=== PATIENT | female | born 1980 | race Caucasian/White ===

== ENCOUNTER 2024-12-08 13:56 | Outpatient (CLI) | payer OTHER, SELFPAY ==
--- NOTE | ~2024-12-08 | DEXA_ITS ---
Bone Density Report Name: JENNIFER COFFMAN Age: 44 Sex: Female Ethnicity: White Date of : 1980 Indication: Referring Provider: UNKNOWN, UNKNOWN Study: Bone densitometry was performed. Exam Date: December 08, 2024 Accession number: [id number] Bone Density: Region BMD T-score Z-score Classification AP Spine(L1-L4) 0.972 -0.7 -0.3 Normal Femoral Neck (Left) 0.716 -1.2 -0.8 Osteopenia Total Hip (Left) 0.840 -0.8 -0.6 Normal Femoral Neck (Right) 0.761 -0.8 -0.4 Normal Total Hip (Right) 0.863 -0.7 -0.4 Normal Total Hip Mean 0.851 -0.8 -0.5 Normal World Health Organization criteria for BMD impression classify patients as: Normal (T-score at or above -1.0), Osteopenia (T-score between -1.0 and -2.5), or Osteoporosis (T-score at or below -2.5). 10-year Fracture Risk: FRAX not reported because: Premenopausal woman Clinical Information Provided by Patient: Has used the following medications: Calcium Patient maximum height was 64 Drinks caffeinated beverages Onset of menses at age 13 Premenopausal Number of children 3 Impression: The patient's bone mass is within expected range for age, gender and ethnicity. Discussion: BONE DENSITY IS WITHIN EXPECTED LIMITS FOR AGE, SEX AND RACE. Bone density is within expected limits for age, sex and race at all sites measured. The patient should follow a healthful lifestyle (good nutrition with adequate calcium and vitamin D, and appropriate weight-bearing exercise). Follow-Up: Consider repeating this study in 2 to 3 years to reassess this patient's status, or sooner if there is some new clinical indication. Reported by: CEM on 12/08/2024 2:19:00 PM. Reviewed, dictated and finalized at location A.
== END 2024-12-08 13:57 | disposition home or self-care (01) ==
DX: M85.852 Other specified disorders of bone density and structure, left thigh (principal); Z82.69 Family history of other diseases of the musculoskeletal system and connective tissue
CPT/HCPCS: 77080